=== PATIENT | female | born 1995 | race Caucasian/White ===

== ENCOUNTER → 2020-11-24 14:00 | Outpatient (CLI) | payer OTHER, SELFPAY ==
[2020-11-24 14:41] LABS: COVID19 -Nasal RAPID Negative (Negative)
== END ==
PROVIDERS: PCP Family Medicine; Visit Provider Specialist
DX: Z01.812 Encounter for preprocedural laboratory examination (principal); Z20.822 Contact with and (suspected) exposure to COVID-19
CPT/HCPCS: 87635

== ENCOUNTER 2020-11-25 11:59 | Day surgery (SDC) | payer OTHER, SELFPAY ==
[2020-11-25] VITALS (9 sets, daily range): BP systolic 124–138; BP diastolic 63–82; PULSE 53–86; RESP 16–23; TEMP 36.4–36.9; O2SAT 97–100; BMI 32.5
[2020-11-25] MEDS: LACTATED RINGERS 1,000 ML 42 ML IV (13:07)
[2020-11-25] MEDS: ACETAMINOPHEN 325 MG TABLET 975 MG PO (13:12)
[2020-11-25] MEDS: SCOPOLAMINE 1 PATCH TOP (13:12)
--- NOTE | 2020-11-25 14:57 | PM.PREOP ---
Pre-operative Note COVID-19 COVID-19 status: Negative Result date/Date tested (Pos, Neg/Pending): 11/24/20 Interval Note History & Physical reviewed/Exam performed by Physician: Yes Changes to H&P: No
--- NOTE | 2020-11-25 15:15 | SUR.OPER ---
Lithotomy on padded OR bed, head on pillow, arms secured on padded arm boards at <90 degrees abduction. Legs secured in padded yellow fins stirrups.
[2020-11-25] MEDS: BUPIVACAINE 0.5% W/ EPI (PF) 30 ML VIAL INJ (15:36)
--- NOTE | 2020-11-25 15:51 | PM.OP.1 ---
Operative Date/Time/Diagnoses Date of procedure: 11/25/20 Time of procedure: 15:52 Pre-op diagnosis: pelvic pain and dysmenorrhea Post-op diagnosis: same Procedure & Clinicians Procedure: diagnostic laparoscopy Same procedure as scheduled: Yes Indications: Patient with longstanding pelvic pain and dysmenorrhea is to undergo laparoscopy to determine if she has endometriosis Surgeon: Lay Clay Click Yes if Unassisted: No Anesthesia Type: General Operative Notes Closure Type: primary Specimen(s): none sent Estimated Blood Loss (mL): 1 Blood products transfused: none Procedure in detail: Patient was brought to the operating room where she underwent general anesthesia. She was placed in low yellowfin stirrups and prepped and draped in usual sterile fashion. Pulsatile stockings were in place and functional. Warming was with blankets. A single-tooth tenaculum was placed on the anterior lip of the cervix and the cervix dilated to #6 Hegar dilator. The Mirta uterine manipulator was placed and balloon inflated with 3 mL of air. The area of the incisions were injected with half percent Marcaine with epinephrine. An incision was made in the umbilicus with a scalpel and the Verres needle placed in the abdomen. Confirmation of correct placement of the needle was performed by withdrawing on the syringe and then allowing fluid to fall freely through the needle. The abdomen was insufflated to 4 L of CO2. A 5 mm trocar was placed under direct visualization. A 2nd 5 mm trochars was placed in the left lower quadrant under direct visualization after incising the skin. There did not appear to be any damage with placement of the trocars. The entire abdomen was examined with no pathology found. The CO2 was allowed to escape from the abdomen. The trochars were removed. Skin was closed with 4-0 monocryl. The patient went to recovery room in good condition. Complications: none Post-operative Condition: stable Disposition: same day surgery Plan for aftercare: home when awake and stable
[2020-11-25] MEDS: fentaNYL 100 MCG/2 ML INJ IV ×2 (16:04→16:09)
[2020-11-25] MEDS: OXYCODONE IR 5 MG TABLET PO (16:18)
== END 2020-11-25 16:48 | disposition home or self-care (01) ==
PROVIDERS: PCP Family Medicine; Referring Provider Specialist; Visit Provider Specialist
PROC: (CPT 49320; principal; 2020-11-25 13:15)
DX: N94.6 Dysmenorrhea, unspecified (principal); N94.10 Unspecified dyspareunia; I49.8 Other specified cardiac arrhythmias
CPT/HCPCS: 49320; J0330; J1100; J1885; J2250; J2405; J2704; J3010